=== PATIENT | male | born 1955 | race African-American/Black ===

== ENCOUNTER 2017-12-20 03:28 | Inpatient (IN) | payer OTHER ==
[2017-12-20] MEDS ORDERED: MORPHINE SULFATE 10 MG/ML INJ IV ONE (05:10)
[2017-12-20] MEDS ORDERED: ONDANSETRON HCL INJ/PF 4 MG/2 ML SDV IV ONE ×2 (05:10→08:02)
[2017-12-20] MEDS ORDERED: NORMAL SALINE 1000 ML 1,000 ML IV ONE (05:10)
--- NOTE | 2017-12-20 05:12 | ER Document Report ---
ED Medical Screen (RME) - General Chief Complaint: Abdominal Pain Stated Complaint: STOMACH PAIN Time Seen by Provider: 12/20/17 05:07 Notes: Patient is a 62-year-old male who comes emergency department with chief complaint of severe abdominal pain that started at 1030 tonight. Pain is in the mid upper abdomen. He states he vomited twice, nonbloody, he had a normal bowel movement earlier in the day. He denies chest pain, flank pain. He denies any abdominal surgeries. Only past medical history is hypertension and type 2 diabetes. TRAVEL OUTSIDE OF THE [place] IN LAST 30 DAYS: No Physical Exam - Vital signs Vitals: Temp Pulse Resp BP Pulse Ox 98.0 F 67 20 115/82 98 12/20/17 03:37 12/20/17 03:37 12/20/17 03:37 12/20/17 03:37 12/20/17 03:37 - General General appearance: Anxious In distress: Moderate - Abdominal Tenderness: Tender - Very tender in the mid to upper abdomen, no obvious hernias , remaining abdomen is benign Course - Vital Signs Vital signs: Temp Pulse Resp BP Pulse Ox 98.0 F 67 20 115/82 98 12/20/17 03:37 12/20/17 03:37 12/20/17 03:37 12/20/17 03:37 12/20/17 03:37 - Laboratory Result Diagrams: 12/20/17 04:58 12/20/17 04:58
[2017-12-20 05:17] LABS: ABSOLUTE BASOPHILS # (AUTO) 0.1 10^3/uL (0.0-0.2); ABSOLUTE LYMPHOCYTES (AUTO) 0.9 10^3/uL (0.5-4.7); ABSOLUTE MONOCYTES (AUTO) 0.6 10^3/uL (0.1-1.4); ABSOLUTE NEUT (AUTO) 10.5 10^3/uL (1.7-8.2); BASOPHILS % (AUTO) 0.5 % (0-2); HEMATOCRIT 44.6 % (37.9-51.0); HEMOGLOBIN 14.8 g/dL (13.5-17.0); LYMPHOCYTES % (AUTO) 7.3 % (13-45); MEAN CORPUSCULAR HEMOGLOBIN 29.1 pg (27.0-33.4); MEAN CORPUSCULAR HGB CONC 33.2 g/dL (32.0-36.0); MEAN CORPUSCULAR VOLUME 88 fl (80-97); MONOCYTES % (AUTO) 5.1 % (3-13); PLATELET COUNT 183 10^3/uL (150-450); RED BLOOD COUNT 5.09 10^6/uL (4.35-5.55); RED CELL DISTRIBUTION WIDTH 13.8 % (11.5-14.0); SEGMENTED NEUTROPHILS % (AUTO) 87.1 % (42-78); TOTAL CELLS COUNTED % (AUTO) 100 %; WHITE BLOOD COUNT 12.1 10^3/uL (4.0-10.5)
[2017-12-20 05:41] LABS: ALANINE AMINOTRANSFERASE 49 U/L (21-72); ALBUMIN 4.2 g/dL (3.5-5.0); ALKALINE PHOSPHATASE 79 U/L (38-126); ANION GAP 12 (5-19); ASPARTATE AMINO TRANSFERASE 48 U/L (17-59); BILIRUBIN,DIRECT 0.2 mg/dL (0.0-0.4); BILIRUBIN,TOTAL 0.9 mg/dL (0.2-1.3); BLOOD UREA NITROGEN 17 mg/dL (7-20); CALCIUM 9.6 mg/dL (8.4-10.2); CARBON DIOXIDE 28 mmol/L (22-30); CHLORIDE 101 mmol/L (98-107); GLUCOSE 193 mg/dL (75-110); POTASSIUM 3.9 mmol/L (3.6-5.0); SODIUM 141.1 mmol/L (137-145); TOTAL PROTEIN 7.3 g/dL (6.3-8.2)
[2017-12-20 06:03] LABS: LIPASE 3850.7 U/L (23-300)
--- NOTE | 2017-12-20 07:40 | RADIOLOGY REPORT (SQ) ---
EXAM DESCRIPTION: ACUTE ABDOMEN SERIES CLINICAL HISTORY: severe abdominal pain, vomiting COMPARISON: None. FINDINGS: Single view of the chest with 2 views of the abdomen. Cardiomegaly. Tortuosity of thoracic aorta. Low lung volumes. No consolidation, pneumothorax, pleural effusion. Degenerative change of the hips.. No dilated loops of large or small bowel. No free intraperitoneal air. Degenerative change of the spine. IMPRESSION: 1. No acute pulmonary process. 2. Nonobstructive bowel gas pattern.
[2017-12-20] MEDS ORDERED: HYDROMORPHONE HCL INJ/PF 2 MG/ML AMPULE IV ONE ×2 (07:57→10:16)
--- NOTE | 2017-12-20 08:05 | ER Document Report ---
ED General - General Chief Complaint: Abdominal Pain Stated Complaint: STOMACH PAIN Time Seen by Provider: 12/20/17 05:07 TRAVEL OUTSIDE OF THE [place] IN LAST 30 DAYS: No - HPI Notes: Patient is a 62-year-old male with a history of hypertension, type 2 diabetes, hypercholesterolemia who presents the ED complaining of epigastric pain 2 days. Patient states that the pain does not radiate. Patient is not sure if food makes the pain worse or better. Patient states that he was eating and drinking normally yesterday and having normal bowel movements. Patient states he still urinating. He has been taking his home medications as directed without any side effects no. Patient states that he did have 2 episodes of nonbloody vomiting yesterday. He denies any drug allergies. No other concerns or complaints at this time. Denies any headache, fever, head injury, neck pain , changes in vision/speech/mentation/hearing, URI, sore throat, chest pain, palpitations, syncope, cough, shortness of breath, wheeze, dyspnea, abdominal pain, nausea/vomiting/diarrhea, urinary retention, dysuria, hematuria, back pain , loss of control of bowel or bladder, numbness/tingling, or rash. - Related Data Allergies/Adverse Reactions: No Known Drug Allergies Allergy (Verified 12/20/17 06:54) Past Medical History - Social History Smoking Status: Never Smoker Chew tobacco use (# tins/day): No Frequency of alcohol use: None Drug Abuse: None Family History: Reviewed & Not Pertinent Patient has suicidal ideation: No Patient has homicidal ideation: No Renal/ Medical History: Denies: Hx Peritoneal Dialysis Review of Systems - Review of Systems Notes: REVIEW OF SYSTEMS: CONSTITUTIONAL : Denies fever, chills, or sweats. Denies recent illness. EENT: Denies eye, ear, throat, or mouth pain or symptoms. Denies nasal or sinus congestion or discharge. Denies throat, tongue, or mouth swelling or difficulty swallowing. CARDIOVASCULAR: Denies chest pain. Denies palpitations or racing or irregular heart beat. Denies ankle edema. RESPIRATORY: Denies cough, cold, or chest congestion. Denies shortness of breath, difficulty breathing, or wheezing. GASTROINTESTINAL: see hpi GENITOURINARY: Denies difficulty urinating, painful urination, burning, frequency, blood in urine, or discharge. MUSCULOSKELETAL: Denies back or neck pain or stiffness. Denies joint pain or swelling. SKIN: Denies rash, lesions or sores. NEUROLOGICAL: Denies confusion or altered mental status. Denies passing out or loss of consciousness. Denies dizziness or lightheadedness. Denies headache. Denies weakness or paralysis or loss of use of either side. Denies problems with gait or speech. Denies sensory loss, numbness, or tingling. Denies seizures. ALL OTHER SYSTEMS REVIEWED AND NEGATIVE. Dictation was performed using [employer] voice recognition software Physical Exam - Vital signs Vitals: Temp Pulse Resp BP Pulse Ox 98.0 F 67 20 115/82 98 12/20/17 03:37 12/20/17 03:37 12/20/17 03:37 12/20/17 03:37 12/20/17 03:37 - Notes Notes: PHYSICAL EXAMINATION: GENERAL: Well-appearing, well-nourished and in no acute distress. A&Ox4 HEAD: Atraumatic, normocephalic. EYES: Pupils equal round and reactive to light, extraocular movements intact, sclera anicteric, conjunctiva are normal. ENT: EAC clear b/l. TM's intact b/l without erythema, fluid, or perforation. Nares patent and without discharge. oropharynx clear without exudates. No tonsilar hypertrophy or erythema. Moist mucous membranes. NECK: Normal range of motion, supple without lymphadenopathy LUNGS: Breath sounds clear to auscultation bilaterally and equal. No wheezes rales or rhonchi. HEART: Regular rate and rhythm without murmurs, rubs, gallops. ABDOMEN: Soft, nondistended abdomen. No guarding, no rebound. No masses appreciated. Normal bowel sounds present. No CVA tenderness bilaterally. Obese. + tenderness to the epigastrum. No tenderness to McBurney point/Leung. Musculoskeletal: FROM to passive/active. Strength 5+/5. Extremities: No cyanosis, clubbing, or edema b/l. Peripheral pulses 2+. Capillary refill less than 3 seconds. NEUROLOGICAL: Normal speech, normal gait. Normal sensory, motor exams PSYCH: Normal mood, normal affect. SKIN: Warm, Dry, normal turgor, no rashes or lesions noted. Course - Re-evaluation Re-evalutation: 12/20/17 08:05 Mildly elevated WBC with elevated Lipase. CMP/CBC otherwise unremarkable. KUB unremarkable. Ordered CT scan to further evaluate. Dilaudid/zofran/NPO/fluids. 12/20/17 09:10 Patient is an afebrile, well-hydrated, 62-year-old male who presents the ED with acute pancreatitis confirmed with CT. vitals are currently stable. We will contact the hospitalist for admission. 12/20/17 09:15 Dr. Dior accepted patient for admission. Pt/family in agreement. - Vital Signs Vital signs: Temp Pulse Resp BP Pulse Ox 98.0 F 67 20 115/82 98 12/20/17 03:37 12/20/17 03:37 12/20/17 03:37 12/20/17 03:37 12/20/17 03:37 - Laboratory Result Diagrams: 12/20/17 04:58 12/20/17 04:58 Laboratory results interpreted by me: 12/20/17 12/20/17 04:58 04:58 WBC 12.1 H Seg Neutrophils % 87.1 H Lymphocytes % 7.3 L Absolute Neutrophils 10.5 H Glucose 193 H Lipase 3850.7 H Discharge - Discharge Clinical Impression: Pancreatitis Qualifiers: Chronicity: acute Pancreatitis type: unspecified pancreatitis type Acute pancreatitis complication: no infection or necrosis Qualified Code(s): K85.90 - Acute pancreatitis without necrosis or infection, unspecified Condition: Stable Disposition: ADMITTED INPATIENT Admitting Provider: Hospitalist - Dr. Dior Unit Admitted: Medical Floor
--- NOTE | 2017-12-20 08:48 | RADIOLOGY REPORT (SQ) ---
EXAM DESCRIPTION: CT ABD/PELVIS WITH IV ONLY COMPLETED DATE/TIME: 12/20/2017 8:34 am REASON FOR STUDY: epigastric pain, elevated lipase COMPARISON: None. TECHNIQUE: CT scan of the abdomen and pelvis performed using helical scanning technique with dynamic intravenous contrast injection. No oral contrast. Images reviewed with lung, soft tissue, and bone windows. Reconstructed coronal and sagittal MPR images reviewed. Delayed images for evaluation of the urinary system also acquired. All images stored on PACS. All CT scanners at this facility use dose modulation, iterative reconstruction, and/or weight based d osing when appropriate to reduce radiation dose to as low as reasonably achievable (ALARA). [facility]: Dose Right [facility]: CareDose [facility]: Dose Right [facility]: Teradose 4D [facility]: [employer] CONTRAST TYPE AND DOSE: contrast/concentration: Isovue 370.00 mg/ml; Total Contrast Delivered: 100.0 ml; Total Saline Delivered: 70.0 ml RENAL FUNCTION: BUN 17 creatinine 0.99. RADIATION DOSE: CT Rad equipment meets quality standard of care and radiation dose reduction techniq ues were employed. CTDIvol: 21.0 - 21.1 mGy. DLP: 2332 mGy-cm.. LIMITATIONS: None. FINDINGS: LOWER CHEST: No significant findings. No nodules or infiltrates. LIVER: Normal size. No masses. No dilated ducts. SPLEEN: Normal size. No focal lesions. PANCREAS: No masses. No significant calcifications. General diffuse edematous appearance of the panc reas with fluid in the peripancreatic tissues. . Pancreatic duct not dilated. GALLBLADDER: No identified stones by CT criteria. No inflammatory changes to suggest cholecystitis. ADRENAL GLANDS: No significant masses or asymmetry. RIGHT KIDNEY AND URETER: No solid masses. No significant calcifications. No hydronephrosis or hyd roureter. LEFT KIDNEY AND URETER: Cortical cysts. No solid masses. No significant calcifications. No hydro nephrosis or hydroureter. AORTA AND VESSELS: No aneurysm. No dissection. Renal arteries, SMA, celiac without stenosis. RETROPERITONEUM: No retroperitoneal adenopathy, hemorrhage or masses. BOWEL AND PERITONEAL CAVITY: Colonic diverticulosis. No masses or inflammatory changes. Small amoun t of free fluid in the pericolic gutters extending from the peripancreatic fluid. No peritoneal mass es. APPENDIX: Normal. PELVIS: No mass. No free fluid. Normal bladder. ABDOMINAL WALL: No masses. No hernias. BONES: No significant or acute findings. 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 OTHER: No other significant finding. IMPRESSION: 1. EDEMATOUS APPEARANCE OF THE PANCREAS WITH INFLAMMATORY CHANGES AND FLUID IN THE PERIPANCREATIC TIS SUES, CONSISTENT WITH ACUTE PANCREATITIS. 2. COLONIC DIVERTICULOSIS. NO CT FINDINGS OF ACUTE DIVERTICULITIS. 3. CORTICAL CYSTS IN THE LEFT KIDNEY. 4. NO OTHER SIGNIFICANT FINDINGS. TECHNICAL DOCUMENTATION: JOB ID: [id number] Quality ID # [id number]: Final reports with documentation of one or more dose reduction techniques (e.g., Au tomated exposure control, adjustment of the mA and/or kV according to patient size, use of iterative reconstruction technique) 2010 [employer]- All Rights Reserved
[2017-12-20 10:13] LABS: APPEARANCE,URINE CLEAR; BILIRUBIN,URINE NEGATIVE (NEGATIVE); COLOR,URINE YELLOW; GLUCOSE, URINE 50 mg/dL (NEGATIVE); KETONES,URINE NEGATIVE (NEGATIVE); LEUKOCYTE ESTERASE,URINE NEGATIVE (NEGATIVE); NITRITE,URINE NEGATIVE (NEGATIVE); PROTEIN,URINE NEGATIVE (NEGATIVE); URINE SPECIFIC GRAVITY 1.044
[2017-12-20] MEDS ORDERED: DEXTROSE 50%-WATER 25 GM/50 ML DISP.SYRIN IV PRN ×6 (11:11→11:23)
[2017-12-20] MEDS ORDERED: GLUCAGON,HUMAN RECOMB 1 MG INJ SUBCUT PRN ×2 (11:11→11:20)
[2017-12-20] MEDS ORDERED: DEXTROSE 40% GEL 15 GM TUBE PO PRN ×6 (11:11→11:23)
[2017-12-20] MEDS ORDERED: ONDANSETRON HCL INJ/PF 4 MG/2 ML SDV IV PRN (11:11)
[2017-12-20] MEDS ORDERED: GLUCAGON,HUMAN RECOMB 1 MG INJ IM PRN (11:23)
--- NOTE | 2017-12-20 11:32 | PDOC H&P ---
History of Present Illness Admission Date/PCP: 12/20/17 09:18 Patient complains of: Add pain History of Present Illness: TRICIA WESLEY is a 62 year old male since with complaint of abdominal pain. Patient states that last night around 10:00 he developed severe abdominal pain. Patient states that prior to that he had been eating [place] food. Patient states that he has not had chills fever during this episode. Patient denies chest pain or shortness of breath. Patient does admit to nausea and vomiting. Patient reports that he is vomited approximately 6 times. Past Medical History Cardiac Medical History: Reports: Hyperlipidema, Hypertension Pulmonary Medical History: Reports: None EENT Medical History: Reports: None Neurological Medical History: Reports: None Endocrine Medical History: Reports: Diabetes Mellitus Type 2 Malignancy Medical History: Reports: None GI Medical History: Reports: None Musculoskeltal Medical History: Reports: None Skin Medical History: Reports: None Psychiatric Medical History: Reports: None Traumatic Medical History: Reports: None Hematology: Reports: None Infectious Medical History: Reports: None Past Surgical History Past Surgical History: Reports: None Social History Information Source: Patient Lives with: Alone Smoking Status: Never Smoker Frequency of Alcohol Use: None Hx Recreational Drug Use: No Hx Prescription Drug Abuse: No - Advance Directive Resuscitation Status: Full Code Family History Family History: DM, Hyperlipidemia, Hypertension Parental Family History Reviewed: No Children Family History Reviewed: No Sibling(s) Family History Reviewed.: No Medication/Allergy Home Medications: Benazepril HCl [Lotensin 20 mg Tablet] 20 mg PO DAILY 12/20/17 Liraglutide [Victoza 2-Srinivas] 1.8 mg SUBCUT DAILY 12/20/17 Metformin HCl [Metformin HCl ER] 1,500 mg PO DAILY 12/20/17 Simvastatin [Zocor 40 mg Tablet] 40 mg PO DAILY 12/20/17 Testosterone Cypionate [Depo-Testosterone] 1.5 ml IM [id number] 12/20/17 Allergies/Adverse Reactions: No Known Drug Allergies Allergy (Verified 12/20/17 06:54) Review of Systems Constitutional: ABSENT: chills, fever(s), headache(s), weight gain, weight loss Eyes: ABSENT: visual disturbances Ears: ABSENT: hearing changes Cardiovascular: ABSENT: chest pain, dyspnea on exertion, edema, orthropnea, palpitations Respiratory: ABSENT: cough, hemoptysis Gastrointestinal: PRESENT: abdominal pain, nausea, vomiting Genitourinary: ABSENT: dysuria, hematuria Musculoskeletal: ABSENT: joint swelling Integumentary: ABSENT: rash, wounds Neurological: ABSENT: abnormal gait, abnormal speech, confusion, dizziness, focal weakness, syncope Psychiatric: ABSENT: anxiety, depression, homidical ideation, suicidal ideation Endocrine: ABSENT: cold intolerance, heat intolerance, polydipsia, polyuria Hematologic/Lymphatic: ABSENT: easy bleeding, easy bruising Physical Exam Vital Signs: Temp Pulse Resp BP Pulse Ox 98.5 F 66 16 129/51 H 94 12/20/17 09:29 12/20/17 09:29 12/20/17 09:29 12/20/17 09:29 12/20/17 09:29 General appearance: PRESENT: mild distress, morbidly obese, well-developed, well -nourished Head exam: PRESENT: atraumatic, normocephalic Eye exam: PRESENT: conjunctiva pink, EOMI. ABSENT: scleral icterus Ear exam: PRESENT: normal external ear exam Mouth exam: PRESENT: moist, tongue midline Neck exam: ABSENT: carotid bruit, JVD, lymphadenopathy, thyromegaly Respiratory exam: PRESENT: clear to auscultation joey. ABSENT: rales, rhonchi, wheezes Cardiovascular exam: PRESENT: RRR. ABSENT: diastolic murmur, rubs, systolic murmur Pulses: PRESENT: normal dorsalis pedis pul Vascular exam: PRESENT: normal capillary refill GI/Abdominal exam: PRESENT: normal bowel sounds, soft. ABSENT: distended, guarding, mass, organolmegaly, rebound, tenderness Rectal exam: PRESENT: deferred Extremities exam: PRESENT: full ROM. ABSENT: calf tenderness, clubbing, pedal edema Neurological exam: PRESENT: alert, awake, oriented to person, oriented to place , oriented to time, oriented to situation, CN II-XII grossly intact. ABSENT: motor sensory deficit Psychiatric exam: PRESENT: appropriate affect, normal mood. ABSENT: homicidal ideation, suicidal ideation Skin exam: PRESENT: dry, intact, warm. ABSENT: cyanosis, rash Results Laboratory Results: 12/20/17 10:05 Urine Color YELLOW Urine Appearance CLEAR Urine pH 5.0 Ur Specific [place] 1.044 Urine Protein NEGATIVE Urine Glucose (UA) 50 H Urine Ketones NEGATIVE Urine Blood NEGATIVE Urine Nitrite NEGATIVE Ur Leukocyte Esterase NEGATIVE Urine WBC (Auto) 1 Urine RBC (Auto) 1 Impressions: Acute Abdomen Series 12/20/17 05:10 IMPRESSION: 1. No acute pulmonary process. 2. Nonobstructive bowel gas pattern. Abdomen/Pelvis CT 12/20/17 07:57 IMPRESSION: 1. EDEMATOUS APPEARANCE OF THE PANCREAS WITH INFLAMMATORY CHANGES AND FLUID IN THE PERIPANCREATIC TISSUES, CONSISTENT WITH ACUTE PANCREATITIS. 2. COLONIC DIVERTICULOSIS. NO CT FINDINGS OF ACUTE DIVERTICULITIS. 3. CORTICAL CYSTS IN THE LEFT KIDNEY. 4. NO OTHER SIGNIFICANT FINDINGS. Assessment & Plan - Diagnosis (1) Acute pancreatitis Is this a current diagnosis for this admission?: Yes Plan: Will make pt NPO. Will place on IVFs. Will write for pain medication. Will check Lipid profile. (2) Hypertension Is this a current diagnosis for this admission?: Yes Plan: Will continue to monitor. (3) DM type 2 (diabetes mellitus, type 2) Is this a current diagnosis for this admission?: Yes Plan: Will place on SSI. Will check Hemoglobin A1C. (4) Hyperlipidemia Is this a current diagnosis for this admission?: Yes Plan: Will check Lipid Profile. (5) Dehydration Is this a current diagnosis for this admission?: Yes Plan: Will place pt on IVFs. Will check labs in am. (6) DVT prophylaxis Is this a current diagnosis for this admission?: Yes Plan: SCDs - Time Time Spent: 30 to 50 Minutes
[2017-12-20] MEDS: MORPHINE SULFATE 10 MG/ML INJ IV PRN ×3 (11:44→20:42)
[2017-12-20] MEDS: DEXTROSE 5%-NORMAL SALINE 1,000 ML IV PRN (11:44)
[2017-12-20] MEDS: INSULIN LISPRO 100 UNIT/ML 3 ML VIAL SUBCUT PRN (16:31)
[2017-12-21] MEDS: INSULIN LISPRO 100 UNIT/ML 3 ML VIAL SUBCUT PRN (00:29)
[2017-12-21] MEDS: PANTOPRAZOLE SODIUM 40 MG VIAL IV SCH ×3 (01:35→22:08)
[2017-12-21] MEDS: MORPHINE SULFATE 10 MG/ML INJ IV PRN ×5 (01:36→20:10)
[2017-12-21] MEDS: DEXTROSE 5%-NORMAL SALINE 1,000 ML IV PRN (05:46)
[2017-12-21 07:14] LABS: HEMATOCRIT 42.3 % (37.9-51.0); MEAN CORPUSCULAR HEMOGLOBIN 28.9 pg (27.0-33.4); MEAN CORPUSCULAR HGB CONC 33.1 g/dL (32.0-36.0); MEAN CORPUSCULAR VOLUME 87 fl (80-97); PLATELET COUNT 152 10^3/uL (150-450); RED BLOOD COUNT 4.84 10^6/uL (4.35-5.55); RED CELL DISTRIBUTION WIDTH 14.1 % (11.5-14.0); WHITE BLOOD COUNT 14.2 10^3/uL (4.0-10.5)
[2017-12-21 07:27] LABS: ALANINE AMINOTRANSFERASE 40 U/L (21-72); ALBUMIN 3.4 g/dL (3.5-5.0); ALKALINE PHOSPHATASE 60 U/L (38-126); ANION GAP 6 (5-19); ASPARTATE AMINO TRANSFERASE 41 U/L (17-59); BILIRUBIN,DIRECT 0.2 mg/dL (0.0-0.4); BILIRUBIN,TOTAL 1.1 mg/dL (0.2-1.3); BLOOD UREA NITROGEN 14 mg/dL (7-20); CALCIUM 8.5 mg/dL (8.4-10.2); CARBON DIOXIDE 30 mmol/L (22-30); CHLORIDE 106 mmol/L (98-107); CHOLESTEROL 116.02 mg/dL (0-200); GLUCOSE 194 mg/dL (75-110); POTASSIUM 3.8 mmol/L (3.6-5.0); SODIUM 142.1 mmol/L (137-145); TOTAL PROTEIN 6.4 g/dL (6.3-8.2); TRIGLYCERIDES 39 mg/dL (<150)
[2017-12-21 07:38] LABS: DIRECT LDL 60 mg/dL (<100)
[2017-12-21 07:43] LABS: FREE T4 (FREE THYROXINE) 0.96 ng/dL (0.78-2.19)
[2017-12-21 07:57] LABS: THYROID STIMULATING HORMONE 0.34 uIU/mL (0.47-4.68)
[2017-12-21 08:13] LABS: ABSOLUTE LYMPHOCYTES# (MANUAL) 0.6 10^3/uL (0.5-4.7); ABSOLUTE MONOCYTES # (MANUAL) 0.6 10^3/uL (0.1-1.4); ABSOLUTE NEUTROPHILS# (MANUAL) 13.1 10^3/uL (1.7-8.2); BAND NEUTROPHILS % (MANUAL) 3 % (3-5); BASOPHILS % (MANUAL) 0 % (0-2); EOSINOPHILS % (MANUAL) 0 % (0-6); HYPOCHROMASIA SLIGHT; LYMPHOCYTES % (MANUAL) 4 % (13-45); MONOCYTES % (MANUAL) 4 % (3-13); PLATELET COMMENT ADEQUATE; POLYCHROMASIA SLIGHT; ROULEAUX SLIGHT; SEGMENTED NEUTROPHILS % (MAN) 89 % (42-78); TOTAL CELLS COUNTED 100
--- NOTE | 2017-12-21 13:45 | PDOC PROGRESS REPORT ---
Subjective Progress Note for:: 12/21/17 Subjective:: Pt states that his pain is currently a 4. Nursing states the patient is requesting pain medicine about every 4 hours. Patient's is at bedside concerned about patient complaining of pain stated that she feels like his pain medicine needs to be increased. Patient on entering the room was sitting quietly. Reason For Visit: ACUTE PANCREATITIS Physical Exam Vital Signs: Temp Pulse Resp BP Pulse Ox 99.9 F 88 22 H 136/73 H 96 12/21/17 11:47 12/21/17 11:47 12/21/17 11:47 12/21/17 11:47 12/21/17 11:47 Intake & Output 12/20/17 12/21/17 12/22/17 06:59 06:59 06:59 Intake Total 1000 Output Total 350 Balance 650 Weight 124.4 kg General appearance: PRESENT: well-developed, well-nourished, other - After waking patient in talking to him then he started grimacing as though he was experiencing pain. Head exam: PRESENT: atraumatic, normocephalic Eye exam: PRESENT: conjunctiva pink, EOMI. ABSENT: scleral icterus Ear exam: PRESENT: normal external ear exam Mouth exam: PRESENT: moist, tongue midline Neck exam: ABSENT: carotid bruit, JVD, lymphadenopathy, thyromegaly Respiratory exam: PRESENT: clear to auscultation joey. ABSENT: rales, rhonchi, wheezes Cardiovascular exam: PRESENT: RRR. ABSENT: diastolic murmur, rubs, systolic murmur Pulses: PRESENT: normal dorsalis pedis pul Vascular exam: PRESENT: normal capillary refill GI/Abdominal exam: PRESENT: tenderness - Epigastric positive for bowel sounds Rectal exam: PRESENT: deferred Extremities exam: PRESENT: full ROM. ABSENT: calf tenderness, clubbing, pedal edema Neurological exam: PRESENT: alert, awake, oriented to person, oriented to place , oriented to time, oriented to situation, CN II-XII grossly intact. ABSENT: motor sensory deficit Psychiatric exam: PRESENT: appropriate affect, normal mood. ABSENT: homicidal ideation, suicidal ideation Skin exam: PRESENT: dry, intact, warm. ABSENT: cyanosis, rash Results Laboratory Results: 12/21/17 06:47 12/21/17 06:47 12/21/17 12/21/17 12/21/17 06:47 06:47 06:47 WBC 14.2 H RBC 4.84 Hgb 14.0 Hct 42.3 MCV 87 MCH 28.9 MCHC 33.1 RDW 14.1 H Plt Count 152 Seg Neutrophils % Not Reportable Lymphocytes % Not Reportable Monocytes % Not Reportable Eosinophils % Not Reportable Basophils % Not Reportable Absolute Neutrophils Not Reportable Absolute Lymphocytes Not Reportable Absolute Monocytes Not Reportable Absolute Eosinophils Not Reportable Absolute Basophils Not Reportable Sodium 142.1 Potassium 3.8 Chloride 106 Carbon Dioxide 30 Anion Gap 6 BUN 14 Creatinine 0.96 Est GFR ( Amer) > 60 Est GFR (Non-Af Amer) > 60 Glucose 194 H Calcium 8.5 Total Bilirubin 1.1 AST 41 ALT 40 Alkaline Phosphatase 60 Total Protein 6.4 Albumin 3.4 L Triglycerides 39 Cholesterol 116.02 LDL Cholesterol Direct 60 VLDL Cholesterol 8.0 L HDL Cholesterol 48 TSH 0.34 L Free T4 0.96 Impressions: Acute Abdomen Series 12/20/17 05:10 IMPRESSION: 1. No acute pulmonary process. 2. Nonobstructive bowel gas pattern. Abdomen/Pelvis CT 12/20/17 07:57 IMPRESSION: 1. EDEMATOUS APPEARANCE OF THE PANCREAS WITH INFLAMMATORY CHANGES AND FLUID IN THE PERIPANCREATIC TISSUES, CONSISTENT WITH ACUTE PANCREATITIS. 2. COLONIC DIVERTICULOSIS. NO CT FINDINGS OF ACUTE DIVERTICULITIS. 3. CORTICAL CYSTS IN THE LEFT KIDNEY. 4. NO OTHER SIGNIFICANT FINDINGS. Assessment & Plan - Diagnosis (1) Acute pancreatitis Is this a current diagnosis for this admission?: Yes Plan: We will continue n.p.o. We will continue IV fluids. Will continue pain medicine as scheduled. Patient reported that his pain level currently as a 4. Nurse reported that it is time for patient to be due to receive morphine again. So therefore it appears that every 4 hours on the morphine is appropriate. His triglycerides are within normal limits. (2) Hypertension Is this a current diagnosis for this admission?: Yes Plan: Continue current treatment. (3) DM type 2 (diabetes mellitus, type 2) Is this a current diagnosis for this admission?: Yes Plan: Hemoglobin A1c of 6.3. Will continue SSI (4) Hyperlipidemia Is this a current diagnosis for this admission?: Yes Plan: Within normal limits. (5) Dehydration Is this a current diagnosis for this admission?: Yes Plan: Resolved. (6) DVT prophylaxis Is this a current diagnosis for this admission?: Yes Plan: SCDs - Time Time Spent with patient: 15-24 minutes
[2017-12-21] MEDS ORDERED: ACETAMINOPHEN 650 MG SUPP.RECT PR PRN (20:15)
[2017-12-22] MEDS: MORPHINE SULFATE 10 MG/ML INJ IV PRN ×3 (04:23→12:45)
[2017-12-22] MEDS: DEXTROSE 5%-NORMAL SALINE 1,000 ML IV PRN (04:23)
[2017-12-22 07:14] LABS: ALANINE AMINOTRANSFERASE 33 U/L (21-72); ALBUMIN 2.9 g/dL (3.5-5.0); ALKALINE PHOSPHATASE 58 U/L (38-126); ANION GAP 7 (5-19); ASPARTATE AMINO TRANSFERASE 38 U/L (17-59); BILIRUBIN,TOTAL 1.3 mg/dL (0.2-1.3); BLOOD UREA NITROGEN 16 mg/dL (7-20); CALCIUM 8.5 mg/dL (8.4-10.2); CARBON DIOXIDE 29 mmol/L (22-30); CHLORIDE 107 mmol/L (98-107); GLUCOSE 175 mg/dL (75-110); LIPASE 694.5 U/L (23-300); POTASSIUM 3.8 mmol/L (3.6-5.0); TOTAL PROTEIN 5.8 g/dL (6.3-8.2)
[2017-12-22] MEDS: PANTOPRAZOLE SODIUM 40 MG VIAL IV SCH ×2 (11:02→22:21)
--- NOTE | 2017-12-22 17:55 | PDOC PROGRESS REPORT ---
Subjective Progress Note for:: 12/22/17 Subjective:: Pt states that his pain is improving. Pt states that he would like to have ICE chips. Reason For Visit: ACUTE PANCREATITIS Physical Exam Vital Signs: Temp Pulse Resp BP Pulse Ox 100.1 F 99 18 127/79 H 91 L 12/22/17 16:15 12/22/17 16:15 12/22/17 16:15 12/22/17 16:15 12/22/17 16:15 Intake & Output 12/21/17 12/22/17 12/23/17 06:59 06:59 06:59 Intake Total 1000 2321 398 Output Total 350 1650 700 Balance 650 671 -302 Weight 124.4 kg 127.2 kg General appearance: PRESENT: mild distress, well-developed, well-nourished Head exam: PRESENT: atraumatic, normocephalic Eye exam: PRESENT: conjunctiva pink, EOMI. ABSENT: scleral icterus Ear exam: PRESENT: normal external ear exam Mouth exam: PRESENT: moist, tongue midline Neck exam: ABSENT: carotid bruit, JVD, lymphadenopathy, thyromegaly Respiratory exam: PRESENT: clear to auscultation joey. ABSENT: rales, rhonchi, wheezes Cardiovascular exam: PRESENT: RRR. ABSENT: diastolic murmur, rubs, systolic murmur Pulses: PRESENT: normal dorsalis pedis pul Vascular exam: PRESENT: normal capillary refill GI/Abdominal exam: PRESENT: normal bowel sounds, tenderness - Diffuse tenderness greater at midepigastric region. ABSENT: distended, guarding, mass, organolmegaly, rebound Rectal exam: PRESENT: deferred Extremities exam: PRESENT: full ROM. ABSENT: calf tenderness, clubbing, pedal edema Neurological exam: PRESENT: alert, awake, oriented to person, oriented to place , oriented to time, oriented to situation, CN II-XII grossly intact. ABSENT: motor sensory deficit Psychiatric exam: PRESENT: appropriate affect, normal mood. ABSENT: homicidal ideation, suicidal ideation Skin exam: PRESENT: dry, intact, warm. ABSENT: cyanosis, rash Results Laboratory Results: 12/21/17 06:47 12/22/17 06:15 12/22/17 06:15 Sodium 143.0 Potassium 3.8 Chloride 107 Carbon Dioxide 29 Anion Gap 7 BUN 16 Creatinine 0.96 Est GFR ( Amer) > 60 Est GFR (Non-Af Amer) > 60 Glucose 175 H Calcium 8.5 Total Bilirubin 1.3 AST 38 ALT 33 Alkaline Phosphatase 58 Total Protein 5.8 L Albumin 2.9 L Lipase 694.5 H Impressions: Acute Abdomen Series 12/20/17 05:10 IMPRESSION: 1. No acute pulmonary process. 2. Nonobstructive bowel gas pattern. Abdomen/Pelvis CT 12/20/17 07:57 IMPRESSION: 1. EDEMATOUS APPEARANCE OF THE PANCREAS WITH INFLAMMATORY CHANGES AND FLUID IN THE PERIPANCREATIC TISSUES, CONSISTENT WITH ACUTE PANCREATITIS. 2. COLONIC DIVERTICULOSIS. NO CT FINDINGS OF ACUTE DIVERTICULITIS. 3. CORTICAL CYSTS IN THE LEFT KIDNEY. 4. NO OTHER SIGNIFICANT FINDINGS. Assessment & Plan - Diagnosis (1) Acute pancreatitis Is this a current diagnosis for this admission?: Yes Plan: We will continue IV fluids, pain medication, and allow patient to have ice chips. (2) Hypertension Is this a current diagnosis for this admission?: Yes Plan: Continue current treatment. (3) DM type 2 (diabetes mellitus, type 2) Is this a current diagnosis for this admission?: Yes Plan: Hemoglobin A1c of 6.3. Will continue SSI (4) Hyperlipidemia Is this a current diagnosis for this admission?: Yes Plan: Within normal limits. (5) Dehydration Is this a current diagnosis for this admission?: Yes Plan: Resolved. (6) DVT prophylaxis Is this a current diagnosis for this admission?: Yes Plan: SCDs - Time Time Spent with patient: 15-24 minutes
[2017-12-23] MEDS: MORPHINE SULFATE 10 MG/ML INJ IV PRN ×2 (00:33→10:55)
[2017-12-23] MEDS: DEXTROSE 5%-NORMAL SALINE 1,000 ML IV PRN ×2 (00:36→10:55)
[2017-12-23 05:39] LABS: ABSOLUTE EOSINOPHILS # (AUTO) 0.1 10^3/uL (0.0-0.6); ABSOLUTE LYMPHOCYTES (AUTO) 0.8 10^3/uL (0.5-4.7); BASOPHILS % (AUTO) 0.2 % (0-2); HEMATOCRIT 35.5 % (37.9-51.0); LYMPHOCYTES % (AUTO) 6.4 % (13-45); MEAN CORPUSCULAR HEMOGLOBIN 28.7 pg (27.0-33.4); MEAN CORPUSCULAR HGB CONC 32.7 g/dL (32.0-36.0); MEAN CORPUSCULAR VOLUME 88 fl (80-97); MONOCYTES % (AUTO) 8.2 % (3-13); PLATELET COUNT 129 10^3/uL (150-450); RED BLOOD COUNT 4.05 10^6/uL (4.35-5.55); RED CELL DISTRIBUTION WIDTH 13.7 % (11.5-14.0); SEGMENTED NEUTROPHILS % (AUTO) 84.2 % (42-78); TOTAL CELLS COUNTED % (AUTO) 100 %; WHITE BLOOD COUNT 11.9 10^3/uL (4.0-10.5)
[2017-12-23 05:44] LABS: HEMOGLOBIN 11.6 g/dL (13.5-17.0)
[2017-12-23 05:51] LABS: ALANINE AMINOTRANSFERASE 30 U/L (21-72); ALBUMIN 2.9 g/dL (3.5-5.0); ALKALINE PHOSPHATASE 55 U/L (38-126); ANION GAP 6 (5-19); ASPARTATE AMINO TRANSFERASE 30 U/L (17-59); BILIRUBIN,DIRECT 0.2 mg/dL (0.0-0.4); BILIRUBIN,TOTAL 1.4 mg/dL (0.2-1.3); BLOOD UREA NITROGEN 16 mg/dL (7-20); CALCIUM 8.1 mg/dL (8.4-10.2); CARBON DIOXIDE 30 mmol/L (22-30); CHLORIDE 107 mmol/L (98-107); GLUCOSE 189 mg/dL (75-110); POTASSIUM 3.6 mmol/L (3.6-5.0); SODIUM 142.5 mmol/L (137-145); TOTAL PROTEIN 5.7 g/dL (6.3-8.2)
[2017-12-23] MEDS: PANTOPRAZOLE SODIUM 40 MG VIAL IV SCH (10:55)
[2017-12-23] MEDS ORDERED: FUROSEMIDE INJ/PF 40 MG/4 ML SDV IV ONE (11:30)
[2017-12-23] MEDS ORDERED: ACETAMINOPHEN 325 MG TABLET PO PRN (16:30)
--- NOTE | 2017-12-23 16:42 | PDOC PROGRESS REPORT ---
Subjective Progress Note for:: 12/23/17 Subjective:: Patient was seen earlier this morning complaining of mild pain. Patient also mentioned that he was short of breath as well. Patient states the pain has improved. Nursing does called to report that patient was noted to be febrile. Nurse was told to give patient Tylenol and to check patient for flu. In addition patient has had multiple visitors to room and his daughter is sick. Reason For Visit: ACUTE PANCREATITIS Physical Exam Vital Signs: Temp Pulse Resp BP Pulse Ox 98.6 F 79 21 H 137/68 H 95 12/23/17 04:00 12/23/17 07:00 12/23/17 04:00 12/23/17 04:00 12/23/17 04:00 Intake & Output 12/22/17 12/23/17 12/24/17 06:59 06:59 06:59 Intake Total 2321 2258 Output Total 1650 1150 Balance 671 1108 Weight 127.2 kg 128.4 kg General appearance: PRESENT: no acute distress, well-developed, well-nourished Head exam: PRESENT: atraumatic, normocephalic Eye exam: PRESENT: conjunctiva pink, EOMI. ABSENT: scleral icterus Ear exam: PRESENT: normal external ear exam Mouth exam: PRESENT: moist, tongue midline Neck exam: ABSENT: carotid bruit, JVD, lymphadenopathy, thyromegaly Respiratory exam: PRESENT: clear to auscultation joey. ABSENT: rales, rhonchi, wheezes Cardiovascular exam: PRESENT: RRR. ABSENT: diastolic murmur, rubs, systolic murmur Pulses: PRESENT: normal dorsalis pedis pul Vascular exam: PRESENT: normal capillary refill GI/Abdominal exam: PRESENT: tenderness Rectal exam: PRESENT: deferred Extremities exam: PRESENT: full ROM. ABSENT: calf tenderness, clubbing, pedal edema Neurological exam: PRESENT: alert, awake, oriented to person, oriented to place , oriented to time, oriented to situation, CN II-XII grossly intact. ABSENT: motor sensory deficit Psychiatric exam: PRESENT: appropriate affect, normal mood. ABSENT: homicidal ideation, suicidal ideation Skin exam: PRESENT: dry, intact, warm. ABSENT: cyanosis, rash Results Laboratory Results: 12/23/17 05:06 12/23/17 05:06 01/29/18 01/29/18 05:06 05:06 WBC 11.9 H RBC 4.05 L Hgb 11.6 L D Hct 35.5 L MCV 88 MCH 28.7 MCHC 32.7 RDW 13.7 Plt Count 129 L Seg Neutrophils % 84.2 H Lymphocytes % 6.4 L Monocytes % 8.2 Eosinophils % 1.0 Basophils % 0.2 Absolute Neutrophils 10.0 H Absolute Lymphocytes 0.8 Absolute Monocytes 1.0 Absolute Eosinophils 0.1 Absolute Basophils 0.0 Sodium 142.5 Potassium 3.6 Chloride 107 Carbon Dioxide 30 Anion Gap 6 BUN 16 Creatinine 0.93 Est GFR ( Amer) > 60 Est GFR (Non-Af Amer) > 60 Glucose 189 H Calcium 8.1 L Magnesium 2.0 Total Bilirubin 1.4 H AST 30 ALT 30 Alkaline Phosphatase 55 Total Protein 5.7 L Albumin 2.9 L Impressions: Acute Abdomen Series 12/20/17 05:10 IMPRESSION: 1. No acute pulmonary process. 2. Nonobstructive bowel gas pattern. Abdomen/Pelvis CT 12/20/17 07:57 IMPRESSION: 1. EDEMATOUS APPEARANCE OF THE PANCREAS WITH INFLAMMATORY CHANGES AND FLUID IN THE PERIPANCREATIC TISSUES, CONSISTENT WITH ACUTE PANCREATITIS. 2. COLONIC DIVERTICULOSIS. NO CT FINDINGS OF ACUTE DIVERTICULITIS. 3. CORTICAL CYSTS IN THE LEFT KIDNEY. 4. NO OTHER SIGNIFICANT FINDINGS. Assessment & Plan - Diagnosis (1) Acute pancreatitis Is this a current diagnosis for this admission?: Yes Plan: We will continue IV fluids, pain medication, and allow patient to have ice chips. Pt may be able to be advanced to Clear Liquids tomorrow (2) Fever Is this a current diagnosis for this admission?: Yes Plan: Will screen pt for Flu. Will repeat CT of abd. Pt can have fever with Pancreatitis be will check CT to make sure pt does not have areas of necrosis. (3) Hypertension Is this a current diagnosis for this admission?: Yes Plan: Continue current treatment. (4) DM type 2 (diabetes mellitus, type 2) Is this a current diagnosis for this admission?: Yes Plan: Hemoglobin A1c of 6.3. Will continue SSI (5) Hyperlipidemia Is this a current diagnosis for this admission?: Yes Plan: Within normal limits. (6) Dehydration Is this a current diagnosis for this admission?: Yes Plan: Resolved. (7) DVT prophylaxis Is this a current diagnosis for this admission?: Yes Plan: SCDs
[2017-12-23] MEDS ORDERED: ACETAMINOPHEN 325 MG TABLET ONE (16:59)
[2017-12-23 18:27] LABS: A TYPE INFLUENZA AG NEGATIVE (NEGATIVE); B INFLUENZA AG NEGATIVE (NEGATIVE)
--- NOTE | 2017-12-23 18:45 | RADIOLOGY REPORT (SQ) ---
EXAM DESCRIPTION: CT ABD/PELVIS WITH IV ONLY COMPLETED DATE/TIME: 12/23/2017 6:27 pm REASON FOR STUDY: Pancreatitis with Fever. Concern for Necrosis COMPARISON: 12/20/2017. TECHNIQUE: CT scan of the abdomen and pelvis performed using helical scanning technique with dynamic intravenous contrast injection. No oral contrast. Images reviewed with lung, soft tissue, and bone windows. Reconstructed coronal and sagittal MPR images reviewed. Delayed images for evaluation of the urinary system also acquired. All images stored on PACS. All CT scanners at this facility use dose modulation, iterative reconstruction, and/or weight based d osing when appropriate to reduce radiation dose to as low as reasonably achievable (ALARA). [facility]: Dose Right [facility]: CareDose [facility]: Dose Right [facility]: Teradose 4D [facility]: Factyle CONTRAST TYPE AND DOSE: contrast/concentration: Isovue 370.00 mg/ml; Total Contrast Delivered: 100.0 ml; Total Saline Delivered: 40.0 ml RENAL FUNCTION: BUN 16 creatinine 0.93. RADIATION DOSE: CT Rad equipment meets quality standard of care and radiation dose reduction techniq ues were employed. CTDIvol: 20.3 - 20.8 mGy. DLP: 2313 mGy-cm.. LIMITATIONS: None. FINDINGS: LOWER CHEST: Small pleural effusions with streaky linear densities in the lung bases. LIVER: Normal size. No masses. No dilated ducts. SPLEEN: Normal size. No focal lesions. PANCREAS: Diffusely edematous appearance of the pancreas. Generally homogeneous enhancement with no clear-cut evidence of lack of enhancement. Diffuse edema and fluid in the peripancreatic tissues. N o focal fluid collections. Pancreatic duct not dilated. GALLBLADDER: No identified stones by CT criteria. No inflammatory changes to suggest cholecystitis. ADRENAL GLANDS: No significant masses or asymmetry. RIGHT KIDNEY AND URETER: No solid masses. No significant calcifications. No hydronephrosis or hyd roureter. LEFT KIDNEY AND URETER: Cortical cyst. No solid masses. No significant calcifications. No hydron ephrosis or hydroureter. AORTA AND VESSELS: No aneurysm. No dissection. Renal arteries, SMA, celiac without stenosis. RETROPERITONEUM: No retroperitoneal adenopathy, hemorrhage or masses. BOWEL AND PERITONEAL CAVITY: Colonic diverticulosis. No masses or inflammatory changes. No free flui d or peritoneal masses. APPENDIX: Normal. PELVIS: No mass. No free fluid. Normal bladder. ABDOMINAL WALL: No masses. No hernias. BONES: No significant or acute findings. OTHER: No other significant finding. IMPRESSION: 1. FINDINGS OF ACUTE PANCREATITIS, SIMILAR TO THE PREVIOUS STUDY. NO EVIDENCE OF CYST OR PSEUDOCYST OR ABSCESS. NO FOCAL AREAS OF NON ENHANCEMENT TO INDICATE NECROTIC TISSUE. 2. SMALL PLEURAL EFFUSIONS WITH BASILAR LUNG DENSITIES PROBABLY DUE TO ATELECTASIS. 3. COLONIC DIVERTICULOSIS. LEFT RENAL CYST. NO OTHER SIGNIFICANT OR ACUTE FINDING IN THE ABDOMEN OR PELVIS ON CT SCAN WITH IV CONTRAST. TECHNICAL DOCUMENTATION: JOB ID: [id number] Quality ID # [id number]: Final reports with documentation of one or more dose reduction techniques (e.g., Au tomated exposure control, adjustment of the mA and/or kV according to patient size, use of iterative reconstruction technique) 2010 [employer]- All Rights Reserved
[2017-12-24] MEDS: DEXTROSE 5%-NORMAL SALINE 1,000 ML IV PRN (01:33)
[2017-12-24] MEDS: INSULIN LISPRO 100 UNIT/ML 3 ML VIAL SUBCUT PRN ×3 (08:57→22:21)
[2017-12-24] MEDS ORDERED: OXYCODONE HCL IR 5 MG TABLET PO PRN (09:09)
--- NOTE | 2017-12-24 14:51 | PDOC PROGRESS REPORT ---
Subjective Progress Note for:: 12/24/17 Subjective:: The patient is a 62-year-old male with a past medical history of hyperlipidemia , hypertension, and diabetes mellitus type 2 on Victoza who was admitted on 12/20 for acute pancreatitis. The patient is seen on morning rounds. He is found resting in the bedside recliner comfortably on room air with his present. His primary complaint at this time is back pain related to the hospital bed/mattress. He denies abdominal pain, nausea vomiting, diarrhea. He does report return of his appetite and requests to have his diet advanced today. He is hopeful to be discharged home within the next day or 2. He has no other questions or concerns at this time. Reason For Visit: ACUTE PANCREATITIS Physical Exam Vital Signs: Temp Pulse Resp BP Pulse Ox 99.6 F 61 16 116/59 L 98 12/24/17 11:39 12/24/17 14:00 12/24/17 11:39 12/24/17 11:39 12/24/17 11:39 Intake & Output 12/23/17 12/24/17 12/25/17 06:59 06:59 06:59 Intake Total 2258 1560 Output Total 1150 1725 Balance 1108 -165 Weight 128.4 kg 129 kg General appearance: PRESENT: no acute distress, obese, well-developed, well- nourished Head exam: PRESENT: atraumatic, normocephalic Eye exam: PRESENT: conjunctiva pink, EOMI, PERRLA. ABSENT: scleral icterus Ear exam: PRESENT: normal external ear exam Mouth exam: PRESENT: moist, tongue midline Neck exam: ABSENT: carotid bruit, JVD, lymphadenopathy, thyromegaly Respiratory exam: PRESENT: clear to auscultation joey, symmetrical, unlabored. ABSENT: rales, rhonchi, wheezes Cardiovascular exam: PRESENT: RRR, +S1, +S2. ABSENT: diastolic murmur, rubs, systolic murmur Pulses: PRESENT: normal dorsalis pedis pul Vascular exam: PRESENT: normal capillary refill GI/Abdominal exam: PRESENT: normal bowel sounds, soft, tenderness. ABSENT: distended, guarding, mass, organolmegaly, rebound Rectal exam: PRESENT: deferred Extremities exam: PRESENT: full ROM. ABSENT: calf tenderness, clubbing, pedal edema Neurological exam: PRESENT: alert, awake, oriented to person, oriented to place , oriented to time, oriented to situation, CN II-XII grossly intact. ABSENT: motor sensory deficit Psychiatric exam: PRESENT: appropriate affect, normal mood. ABSENT: homicidal ideation, suicidal ideation Skin exam: PRESENT: dry, intact, warm. ABSENT: cyanosis, rash Results Laboratory Results: 12/23/17 05:06 12/23/17 05:06 Impressions: Acute Abdomen Series 12/20/17 05:10 IMPRESSION: 1. No acute pulmonary process. 2. Nonobstructive bowel gas pattern. Abdomen/Pelvis CT 12/23/17 00:00 IMPRESSION: 1. FINDINGS OF ACUTE PANCREATITIS, SIMILAR TO THE PREVIOUS STUDY. NO EVIDENCE OF CYST OR PSEUDOCYST OR ABSCESS. NO FOCAL AREAS OF NON ENHANCEMENT TO INDICATE NECROTIC TISSUE. 2. SMALL PLEURAL EFFUSIONS WITH BASILAR LUNG DENSITIES PROBABLY DUE TO ATELECTASIS. 3. COLONIC DIVERTICULOSIS. LEFT RENAL CYST. NO OTHER SIGNIFICANT OR ACUTE FINDING IN THE ABDOMEN OR PELVIS ON CT SCAN WITH IV CONTRAST. Assessment & Plan - Diagnosis (1) Acute pancreatitis Is this a current diagnosis for this admission?: Yes Plan: We will continue IV fluids. We will transition from IV to oral pain medications. The diet will be advanced to clear liquids today; if the patient tolerates this it may be advanced as tolerated. Anti-emetics as needed. (2) Fever Is this a current diagnosis for this admission?: Yes Plan: Trending downwards; the patient did have a temperature of 100.8 early this morning. Influenza is negative. Repeat abdominal CAT scan did not show evidence of developing pseudocyst or pancreatic necrosis. We will continue to monitor. (3) DM type 2 (diabetes mellitus, type 2) Is this a current diagnosis for this admission?: Yes Plan: Hemoglobin A1c of 6.3%. Accu-Cheks before meals and at bedtime with Humalog for sliding scale coverage. (4) Hyperlipidemia Is this a current diagnosis for this admission?: Yes Plan: Within normal limits. Continue the patient's home dose simvastatin. (5) Hypertension Is this a current diagnosis for this admission?: Yes Plan: Well-controlled. Continue patient's home dose benazepril. (6) DVT prophylaxis Is this a current diagnosis for this admission?: Yes Plan: SCDs; encourage ambulation. (7) Dehydration Is this a current diagnosis for this admission?: Yes Plan: Resolved. - Time Time Spent with patient: 25-34 minutes Medications reviewed and adjusted accordingly: Yes Anticipated discharge: Home Within: within 24 hours
[2017-12-24] MEDS: OXYCODONE HCL IR 5 MG TABLET PO PRN (18:12)
[2017-12-24] MEDS: SIMVASTATIN 40 MG TABLET PO SCH (21:48)
[2017-12-25 05:43] LABS: HEMATOCRIT 33.3 % (37.9-51.0); HEMOGLOBIN 11.1 g/dL (13.5-17.0); MEAN CORPUSCULAR HEMOGLOBIN 28.7 pg (27.0-33.4); MEAN CORPUSCULAR HGB CONC 33.3 g/dL (32.0-36.0); MEAN CORPUSCULAR VOLUME 86 fl (80-97); PLATELET COUNT 147 10^3/uL (150-450); RED BLOOD COUNT 3.86 10^6/uL (4.35-5.55); RED CELL DISTRIBUTION WIDTH 13.6 % (11.5-14.0); WHITE BLOOD COUNT 12.9 10^3/uL (4.0-10.5)
[2017-12-25 06:06] LABS: ANION GAP 6 (5-19); BLOOD UREA NITROGEN 12 mg/dL (7-20); CALCIUM 8.5 mg/dL (8.4-10.2); CARBON DIOXIDE 29 mmol/L (22-30); CHLORIDE 103 mmol/L (98-107); GLUCOSE 132 mg/dL (75-110); POTASSIUM 3.4 mmol/L (3.6-5.0); SODIUM 137.6 mmol/L (137-145)
[2017-12-25] MEDS ORDERED: NORMAL SALINE 1000 ML 1,000 ML IV PRN (08:24)
[2017-12-25] MEDS: BENAZEPRIL HCL 20 MG TABLET PO SCH (09:20)
--- NOTE | 2017-12-25 12:38 | PDOC PROGRESS REPORT ---
Subjective Progress Note for:: 12/25/17 Subjective:: The patient is a 62-year-old male with a past medical history of hyperlipidemia , hypertension, and diabetes mellitus type 2 on Victoza who was admitted on 12/20 for acute pancreatitis. The patient is seen on morning rounds. He is found resting in bed comfortably on room air. States that his pain is much improved and only required pain medications once overnight. He denies nausea, vomiting, and diarrhea. He does report that he has tolerated water well but had significant abdominal pain after eating Jell-O and broth. Reason For Visit: ACUTE PANCREATITIS Physical Exam Vital Signs: Temp Pulse Resp BP Pulse Ox 99.1 F 57 L 21 H 127/68 H 99 12/25/17 04:39 12/25/17 07:00 12/25/17 04:39 12/25/17 04:39 12/25/17 04:39 Intake & Output 12/24/17 12/25/17 12/26/17 06:59 06:59 06:59 Intake Total 1560 1055 Output Total 1725 270 Balance -165 785 Weight 129 kg 126.3 kg General appearance: PRESENT: no acute distress, obese, well-developed, well- nourished Head exam: PRESENT: atraumatic, normocephalic Eye exam: PRESENT: conjunctiva pink, EOMI, PERRLA. ABSENT: scleral icterus Ear exam: PRESENT: normal external ear exam Mouth exam: PRESENT: moist, tongue midline Neck exam: ABSENT: carotid bruit, JVD, lymphadenopathy, thyromegaly Respiratory exam: PRESENT: clear to auscultation joey, symmetrical, unlabored. ABSENT: rales, rhonchi, wheezes Cardiovascular exam: PRESENT: RRR, +S1, +S2. ABSENT: diastolic murmur, rubs, systolic murmur Pulses: PRESENT: normal dorsalis pedis pul Vascular exam: PRESENT: normal capillary refill GI/Abdominal exam: PRESENT: normal bowel sounds, soft. ABSENT: distended, guarding, mass, organolmegaly, rebound, tenderness Rectal exam: PRESENT: deferred Extremities exam: PRESENT: full ROM. ABSENT: calf tenderness, clubbing, pedal edema Neurological exam: PRESENT: alert, awake, oriented to person, oriented to place , oriented to time, oriented to situation, CN II-XII grossly intact. ABSENT: motor sensory deficit Psychiatric exam: PRESENT: appropriate affect, normal mood. ABSENT: homicidal ideation, suicidal ideation Skin exam: PRESENT: dry, intact, warm. ABSENT: cyanosis, rash Results Laboratory Results: 12/25/17 05:20 12/25/17 05:20 12/25/17 12/25/17 05:20 05:20 WBC 12.9 H RBC 3.86 L Hgb 11.1 L Hct 33.3 L MCV 86 MCH 28.7 MCHC 33.3 RDW 13.6 Plt Count 147 L Sodium 137.6 Potassium 3.4 L Chloride 103 Carbon Dioxide 29 Anion Gap 6 BUN 12 Creatinine 0.94 Est GFR ( Amer) > 60 Est GFR (Non-Af Amer) > 60 Glucose 132 H Calcium 8.5 Impressions: Acute Abdomen Series 12/20/17 05:10 IMPRESSION: 1. No acute pulmonary process. 2. Nonobstructive bowel gas pattern. Abdomen/Pelvis CT 12/23/17 00:00 IMPRESSION: 1. FINDINGS OF ACUTE PANCREATITIS, SIMILAR TO THE PREVIOUS STUDY. NO EVIDENCE OF CYST OR PSEUDOCYST OR ABSCESS. NO FOCAL AREAS OF NON ENHANCEMENT TO INDICATE NECROTIC TISSUE. 2. SMALL PLEURAL EFFUSIONS WITH BASILAR LUNG DENSITIES PROBABLY DUE TO ATELECTASIS. 3. COLONIC DIVERTICULOSIS. LEFT RENAL CYST. NO OTHER SIGNIFICANT OR ACUTE FINDING IN THE ABDOMEN OR PELVIS ON CT SCAN WITH IV CONTRAST. Assessment & Plan - Diagnosis (1) Acute pancreatitis Is this a current diagnosis for this admission?: Yes Plan: The patient's IV accidentally was removed last night. He does not agree to have the IV restarted for fluids today. Nursing notes indicate poor p.o. intake yesterday, however, the patient reports that he did drink water well (apparently family has been providing bottled water ). Encourage the patient to increase p.o. intake today. He did well with transition to oral pain medications. Continue clear liquid diet and advance as tolerated. Anti-emetics as needed. (2) Fever Is this a current diagnosis for this admission?: Yes Plan: Trending downwards; the patient did have a temperature of 100.5 night last night. Influenza is negative. Repeat abdominal CT scan did not show evidence of developing pseudocyst or pancreatic necrosis. Blood cultures: No growth at 24 hours We will continue to monitor. (3) DM type 2 (diabetes mellitus, type 2) Is this a current diagnosis for this admission?: Yes Plan: Hemoglobin A1c of 6.3%. Accu-Cheks before meals and at bedtime with Humalog for sliding scale coverage. (4) Hyperlipidemia Is this a current diagnosis for this admission?: Yes Plan: Within normal limits. Continue the patient's home dose simvastatin. (5) Hypertension Is this a current diagnosis for this admission?: Yes Plan: Well-controlled. Continue patient's home dose benazepril. (6) DVT prophylaxis Is this a current diagnosis for this admission?: Yes Plan: SCDs; encourage ambulation. (7) Dehydration Is this a current diagnosis for this admission?: Yes Plan: Resolved. - Time Time Spent with patient: 25-34 minutes Medications reviewed and adjusted accordingly: Yes Anticipated discharge: Home Within: Other - Once afebrile and tolerating p.o.
[2017-12-25] MEDS: OXYCODONE HCL IR 5 MG TABLET PO PRN (19:43)
[2017-12-25] MEDS: INSULIN LISPRO 100 UNIT/ML 3 ML VIAL SUBCUT PRN (22:53)
[2017-12-25] MEDS: SIMVASTATIN 40 MG TABLET PO SCH (22:53)
[2017-12-26 06:35] LABS: HEMATOCRIT 33.9 % (37.9-51.0); HEMOGLOBIN 11.4 g/dL (13.5-17.0); MEAN CORPUSCULAR HEMOGLOBIN 28.9 pg (27.0-33.4); MEAN CORPUSCULAR HGB CONC 33.5 g/dL (32.0-36.0); MEAN CORPUSCULAR VOLUME 86 fl (80-97); PLATELET COUNT 180 10^3/uL (150-450); RED BLOOD COUNT 3.94 10^6/uL (4.35-5.55); RED CELL DISTRIBUTION WIDTH 13.8 % (11.5-14.0); WHITE BLOOD COUNT 12.2 10^3/uL (4.0-10.5)
[2017-12-26 06:52] LABS: ANION GAP 8 (5-19); BLOOD UREA NITROGEN 9 mg/dL (7-20); CALCIUM 8.6 mg/dL (8.4-10.2); CARBON DIOXIDE 27 mmol/L (22-30); CHLORIDE 102 mmol/L (98-107); GLUCOSE 123 mg/dL (75-110); LIPASE 107.8 U/L (23-300); POTASSIUM 3.3 mmol/L (3.6-5.0)
[2017-12-26 09:22] LABS: ALANINE AMINOTRANSFERASE 59 U/L (21-72); ALBUMIN 2.7 g/dL (3.5-5.0); ALKALINE PHOSPHATASE 90 U/L (38-126); ASPARTATE AMINO TRANSFERASE 42 U/L (17-59); BILIRUBIN,DIRECT 0.3 mg/dL (0.0-0.4); BILIRUBIN,TOTAL 0.9 mg/dL (0.2-1.3); TOTAL PROTEIN 5.8 g/dL (6.3-8.2)
--- NOTE | 2017-12-26 09:30 | RADIOLOGY REPORT (SQ) ---
EXAM DESCRIPTION: CHEST SINGLE VIEW COMPLETED DATE/TIME: 12/26/2017 9:14 am REASON FOR STUDY: fever, elevated WBC COMPARISON: 12/20/2017 EXAM PARAMETERS: NUMBER OF VIEWS: One view. TECHNIQUE: Single frontal radiographic view of the chest acquired. RADIATION DOSE: NA LIMITATIONS: None. FINDINGS: LUNGS AND PLEURA: Bibasilar atelectasis versus pneumonia left greater than right. No pleural effusion. No pneumothorax. MEDIASTINUM AND HILAR STRUCTURES: No masses. Contour normal. HEART AND VASCULAR STRUCTURES: Heart normal in size. Normal vasculature. BONES: No acute findings. HARDWARE: None in the chest. OTHER: No other significant finding. IMPRESSION: Bibasilar airspace disease left greater than right, atelectasis versus pneumonia. TECHNICAL DOCUMENTATION: JOB ID: [id number] [employer]- All Rights Reserved
[2017-12-26 10:40] LABS: APPEARANCE,URINE CLEAR; BILIRUBIN,URINE NEGATIVE (NEGATIVE); COLOR,URINE YELLOW; GLUCOSE, URINE NEGATIVE (NEGATIVE); KETONES,URINE NEGATIVE (NEGATIVE); LEUKOCYTE ESTERASE,URINE NEGATIVE (NEGATIVE); NITRITE,URINE NEGATIVE (NEGATIVE); PROTEIN,URINE NEGATIVE (NEGATIVE); URINE SPECIFIC GRAVITY 1.013
[2017-12-26] MEDS: ERTAPENEM SODIUM 1 GM in NORMAL SALINE 50 ML IV SCH (11:37)
[2017-12-26] MEDS: BENAZEPRIL HCL 20 MG TABLET PO SCH (11:37)
[2017-12-26] MEDS: NORMAL SALINE 1000 ML 1,000 ML IV PRN ×2 (11:38→22:28)
[2017-12-26] MEDS: INSULIN LISPRO 100 UNIT/ML 3 ML VIAL SUBCUT PRN (12:37)
--- NOTE | 2017-12-26 16:12 | PDOC PROGRESS REPORT ---
Subjective Progress Note for:: 12/26/17 Subjective:: The patient is a 62-year-old male with a past medical history of hyperlipidemia , hypertension, and diabetes mellitus type 2 on Victoza who was admitted on 12/20 for acute pancreatitis. The patient is seen on morning rounds. He is found resting in bed on room air. He states that he is feeling much worse today. He reports his abdominal pain has increased slightly and that he has had multiple episodes of diarrhea, including 2 episodes of stool incontinence overnight. States that he is tolerating clear liquids but is having continued nausea. He denies emesis. Reason For Visit: ACUTE PANCREATITIS Physical Exam Vital Signs: Temp Pulse Resp BP Pulse Ox 99.1 F 63 20 121/62 98 12/26/17 12:08 12/26/17 12:08 12/26/17 12:08 12/26/17 12:08 12/26/17 12:08 Intake & Output 12/25/17 12/26/17 12/27/17 06:59 06:59 06:59 Intake Total 1055 2328 Output Total 270 1250 Balance 785 1078 Weight 126.3 kg 127.1 kg General appearance: PRESENT: no acute distress, obese, well-developed, well- nourished Head exam: PRESENT: atraumatic, normocephalic Eye exam: PRESENT: conjunctiva pink, EOMI, PERRLA. ABSENT: scleral icterus Ear exam: PRESENT: normal external ear exam Mouth exam: PRESENT: moist, tongue midline Neck exam: ABSENT: carotid bruit, JVD, lymphadenopathy, thyromegaly Respiratory exam: PRESENT: clear to auscultation joey, decreased breath sounds - Bibasilar, symmetrical, unlabored. ABSENT: rales, rhonchi, wheezes Cardiovascular exam: PRESENT: RRR, +S1, +S2. ABSENT: diastolic murmur, rubs, systolic murmur Pulses: PRESENT: normal dorsalis pedis pul Vascular exam: PRESENT: normal capillary refill GI/Abdominal exam: PRESENT: normal bowel sounds, soft, tenderness. ABSENT: distended, guarding, mass, organolmegaly, rebound Rectal exam: PRESENT: deferred Extremities exam: PRESENT: full ROM. ABSENT: calf tenderness, clubbing, pedal edema Neurological exam: PRESENT: alert, awake, oriented to person, oriented to place , oriented to time, oriented to situation, CN II-XII grossly intact. ABSENT: motor sensory deficit Psychiatric exam: PRESENT: appropriate affect, normal mood. ABSENT: homicidal ideation, suicidal ideation Skin exam: PRESENT: dry, intact, warm. ABSENT: cyanosis, rash Results Laboratory Results: 12/26/17 05:48 12/26/17 05:48 12/26/17 12/26/17 12/26/17 05:48 05:48 05:48 WBC 12.2 H RBC 3.94 L Hgb 11.4 L Hct 33.9 L MCV 86 MCH 28.9 MCHC 33.5 RDW 13.8 Plt Count 180 Sodium 137.0 Potassium 3.3 L Chloride 102 Carbon Dioxide 27 Anion Gap 8 BUN 9 Creatinine 0.92 Est GFR ( Amer) > 60 Est GFR (Non-Af Amer) > 60 Glucose 123 H Calcium 8.6 Total Bilirubin 0.9 AST 42 ALT 59 Alkaline Phosphatase 90 Total Protein 5.8 L Albumin 2.7 L Lipase 107.8 Urine Color Urine Appearance Urine pH Ur Specific [place] Urine Protein Urine Glucose (UA) Urine Ketones Urine Blood Urine Nitrite Ur Leukocyte Esterase Urine WBC (Auto) Urine RBC (Auto) 12/26/17 10:05 WBC RBC Hgb Hct MCV MCH MCHC RDW Plt Count Sodium Potassium Chloride Carbon Dioxide Anion Gap BUN Creatinine Est GFR ( Amer) Est GFR (Non-Af Amer) Glucose Calcium Total Bilirubin AST ALT Alkaline Phosphatase Total Protein Albumin Lipase Urine Color YELLOW Urine Appearance CLEAR Urine pH 7.0 Ur Specific [place] 1.013 Urine Protein NEGATIVE Urine Glucose (UA) NEGATIVE Urine Ketones NEGATIVE Urine Blood SMALL H Urine Nitrite NEGATIVE Ur Leukocyte Esterase NEGATIVE Urine WBC (Auto) 2 Urine RBC (Auto) 5 Impressions: Acute Abdomen Series 12/20/17 05:10 IMPRESSION: 1. No acute pulmonary process. 2. Nonobstructive bowel gas pattern. Abdomen/Pelvis CT 12/23/17 00:00 IMPRESSION: 1. FINDINGS OF ACUTE PANCREATITIS, SIMILAR TO THE PREVIOUS STUDY. NO EVIDENCE OF CYST OR PSEUDOCYST OR ABSCESS. NO FOCAL AREAS OF NON ENHANCEMENT TO INDICATE NECROTIC TISSUE. 2. SMALL PLEURAL EFFUSIONS WITH BASILAR LUNG DENSITIES PROBABLY DUE TO ATELECTASIS. 3. COLONIC DIVERTICULOSIS. LEFT RENAL CYST. NO OTHER SIGNIFICANT OR ACUTE FINDING IN THE ABDOMEN OR PELVIS ON CT SCAN WITH IV CONTRAST. Chest X-Ray 12/26/17 00:00 IMPRESSION: Bibasilar airspace disease left greater than right, atelectasis versus pneumonia. Assessment & Plan - Diagnosis (1) Acute pancreatitis Is this a current diagnosis for this admission?: Yes Plan: The patient's lipase is normal today at 107.8. However, the patient reports increased abdominal pain, persistent nausea, low-grade fever, and multiple episodes of diarrhea that developed overnight. ABD/Pelvis CT on 12/23/17 was negative for pseudocyst or development of pancreatic necrosis. WBC count remains elevated. Blood cultures are negative at 48 hours. The patient is agreeable to restarting IV fluids today. Given his persistent fever, abdominal pain, and WBCs, will place the patient on ertapenem. Abdominal CTs have been negative for gallstones, will obtain a right upper quadrant ultrasound. Antiemetics as needed for nausea. P.o. oxycodone as needed for pain. We will advance to a low-fat diet. (2) Fever Is this a current diagnosis for this admission?: Yes Plan: The fever may be related to pancreatitis, however, as he continues to have low- grade temperatures will evaluate for alternate causes including pneumonia or urinary tract infection. Influenza is negative. Repeat abdominal CT scan did not show evidence of developing pseudocyst or pancreatic necrosis. Blood cultures: No growth at 48 hours Urine cultures pending. Stool cultures pending. Chest x-ray demonstrates bibasilar airspace disease with the left greater than right, atelectasis versus pneumonia. Urinalysis is negative for UTI. C. difficile negative The patient was empirically placed on ertapenem. Have resumed IV fluids. Tylenol as needed for fever. We will continue to monitor. (3) DM type 2 (diabetes mellitus, type 2) Is this a current diagnosis for this admission?: Yes Plan: Hemoglobin A1c of 6.3%. Accu-Cheks before meals and at bedtime with Humalog for sliding scale coverage. (4) Hyperlipidemia Is this a current diagnosis for this admission?: Yes Plan: Within normal limits. Continue the patient's home dose simvastatin. (5) Hypertension Is this a current diagnosis for this admission?: Yes Plan: Well-controlled. Continue patient's home dose benazepril. (6) DVT prophylaxis Is this a current diagnosis for this admission?: Yes Plan: SCDs; encourage ambulation. (7) Dehydration Is this a current diagnosis for this admission?: Yes Plan: Resolved. - Time Time Spent with patient: 25-34 minutes Medications reviewed and adjusted accordingly: Yes - Inpatient Certification Based on my medical assessment, after consideration of the patient's comorbidities, presenting symptoms, or acuity I expect that the services needed warrant INPATIENT care.: Yes I certify that my determination is in accordance with my understanding of Medicare's requirements for reasonable and necessary INPATIENT services [42 CFR 412.3e].: Yes Medical Necessity: Need For IV Fluids, Need for IV Antibiotics
[2017-12-26] MEDS: SIMVASTATIN 40 MG TABLET PO SCH (22:28)
[2017-12-27] MEDS: INSULIN LISPRO 100 UNIT/ML 3 ML VIAL SUBCUT PRN (00:08)
[2017-12-27 06:30] LABS: ABSOLUTE EOSINOPHILS # (AUTO) 0.1 10^3/uL (0.0-0.6); ABSOLUTE LYMPHOCYTES (AUTO) 1.1 10^3/uL (0.5-4.7); ABSOLUTE NEUT (AUTO) 8.4 10^3/uL (1.7-8.2); BASOPHILS % (AUTO) 0.3 % (0-2); EOSINOPHILS % (AUTO) 1.3 % (0-6); HEMATOCRIT 34.2 % (37.9-51.0); HEMOGLOBIN 11.4 g/dL (13.5-17.0); LYMPHOCYTES % (AUTO) 10.1 % (13-45); MEAN CORPUSCULAR HEMOGLOBIN 28.7 pg (27.0-33.4); MEAN CORPUSCULAR HGB CONC 33.2 g/dL (32.0-36.0); MEAN CORPUSCULAR VOLUME 86 fl (80-97); MONOCYTES % (AUTO) 9.8 % (3-13); PLATELET COUNT 217 10^3/uL (150-450); RED BLOOD COUNT 3.96 10^6/uL (4.35-5.55); RED CELL DISTRIBUTION WIDTH 13.4 % (11.5-14.0); SEGMENTED NEUTROPHILS % (AUTO) 78.5 % (42-78); TOTAL CELLS COUNTED % (AUTO) 100 %; WHITE BLOOD COUNT 10.7 10^3/uL (4.0-10.5)
[2017-12-27 06:49] LABS: ANION GAP 8 (5-19); BLOOD UREA NITROGEN 7 mg/dL (7-20); CALCIUM 8.3 mg/dL (8.4-10.2); CARBON DIOXIDE 27 mmol/L (22-30); CHLORIDE 103 mmol/L (98-107); GLUCOSE 155 mg/dL (75-110); POTASSIUM 3.5 mmol/L (3.6-5.0)
--- NOTE | 2017-12-27 07:37 | RADIOLOGY REPORT (SQ) ---
EXAM DESCRIPTION: U/S ABDOMEN LIMITED W/O DOP COMPLETED DATE/TIME: 12/27/2017 7:17 am REASON FOR STUDY: Acute pancreatitis. ? gallstones COMPARISON: CT abdomen and pelvis 12/20/2017, 12/23/2017. TECHNIQUE: Grayscale images acquired of the right upper quadrant and recorded on PACS. Additional se lected color Doppler and spectral images recorded. LIMITATIONS: Acoustical interference from fat or from air in the bowel. FINDINGS: PANCREAS: Mostly obscured by overlying bowel gas. The visualized pancreas in the midline appears edematous. There is possible dilation of the main pancreatic duct to 6 mm. LIVER: Measures 16.9 cm. There is a 1.5 x 1.6 x 1.3 cm hyperechoic area at the left hepatic lobe wit h no significant vascular flow on color Doppler images. LIVER VASCULATURE: Normal directional flow of the main portal vein. GALLBLADDER: Sludge noted. No shadowing stones. Normal wall thickness. No pericholecystic fluid. ULTRASOUND-DETECTED MARTINEZ'S SIGN: Negative. INTRAHEPATIC DUCTS AND COMMON DUCT: CBD and intrahepatic ducts normal caliber. INFERIOR VENA CAVA: Obscured by overlying bowel gas. AORTA: No aneurysm in the visualized proximal and mid segments, the distal abdominal aorta is obscure d by overlying bowel gas. RIGHT KIDNEY: Measures 12 cm in length. Normal echogenicity.No hydronephrosis. No calcifications. PERITONEAL CAVITY AND RIGHT PLEURAL SPACE: Peripancreatic fluid noted. IMPRESSION: 1. Partially visualized pancreas appears edematous with peripancreatic fluid, consisten t with clinical history of acute pancreatitis. Possible dilation of the main pancreatic duct. Pleas e note that CT or MRI are more sensitive in evaluation for peripancreatic edema or fluid collections. 2. Gallbladder sludge. No biliary ductal dilation. 3. 1.6 cm indeterminate hyperechoic lesion at the left hepatic lobe. This can be better evaluated wi dedicated contrast enhanced MRI. TECHNICAL DOCUMENTATION: JOB ID: [id number] [employer]- All Rights Reserved
[2017-12-27] MEDS: BENAZEPRIL HCL 20 MG TABLET PO SCH (10:25)
[2017-12-27] MEDS: ERTAPENEM SODIUM 1 GM in NORMAL SALINE 50 ML IV SCH (10:26)
[2017-12-27] MEDS ORDERED: INFLUENZA ADLT QUAD (36MOS+) 2017-18 VAC 0.5 ML SYR IM PRN (11:59)
[2017-12-27 12:48] VITALS: BP 116/77
--- NOTE | 2017-12-27 12:54 | PDOC DISCHARGE SUMMARY ---
General - Admit/Disc Date/PCP Admission Date/Primary Care Provider: 12/20/17 09:18 Discharge Date: 12/27/17 - Discharge Diagnosis (1) Acute pancreatitis Is this a current diagnosis for this admission?: Yes (2) Fever Is this a current diagnosis for this admission?: Yes (3) DM type 2 (diabetes mellitus, type 2) Is this a current diagnosis for this admission?: Yes (4) Hyperlipidemia Is this a current diagnosis for this admission?: Yes (5) Hypertension Is this a current diagnosis for this admission?: Yes (6) DVT prophylaxis Is this a current diagnosis for this admission?: Yes (7) Dehydration Is this a current diagnosis for this admission?: Yes - Additional Information Resuscitation Status: Full Code Discharge Diet: As Tolerated Discharge Activity: Activity As Tolerated, Slowly Increase Activity Prescriptions: Levofloxacin [Levaquin 750 mg Tablet] 750 mg PO DAILY #10 tab Oxycodone HCl [Oxy-Ir 5 mg Tablet] 5 mg PO Q4HP PRN #10 tablet PRN Reason: Home Medications: Benazepril HCl [Lotensin 20 mg Tablet] 20 mg PO DAILY 12/20/17 Metformin HCl [Metformin HCl ER] 1,500 mg PO DAILY 12/20/17 Simvastatin [Zocor 40 mg Tablet] 40 mg PO DAILY 12/20/17 Testosterone Cypionate [Depo-Testosterone] 1.5 ml IM [id number] 12/20/17 Oxycodone HCl [Oxy-Ir 5 mg Tablet] 5 mg PO Q4HP PRN #10 tablet 12/26/17 Levofloxacin [Levaquin 750 mg Tablet] 750 mg PO DAILY #10 tab 12/27/17 History of Present Illness History of Present Illness: Per H&P by Dr. Dior: TRICIA WESLEY is a 62 year old male with complaint of abdominal pain. Patient states that last night around 10:00 he developed severe abdominal pain patient states that prior to that he had been eating [place] food. Patient states that he has not had chills fever during this episode. Patient denies chest pain or shortness of breath. Patient does admit to nausea and vomiting. Patient reports that he is vomited approximately 6 times. Hospital Course Hospital Course: The patient was admitted with acute pancreatitis with a lipase of 3850 trended down to 107 over the course of his admission. He was evaluated with a CT of the abdomen and pelvis at time of admission; demonstrating an edematous appearance of the pancreas with inflammatory changes and fluid in the oscar- pancreatic tissues, colonic diverticulosis without evidence of acute diverticulitis, and a cortical cyst of the left kidney. He received supportive therapies with IV fluids, anti-antiemetics, and pain control. A lipid panel was evaluated and found to be acceptable with an HDL of 48, LDL of 60, triglycerides of 39, with total cholesterol being 116. His A1c was found to be 6.3%. The patient did have a persistently elevated WBC count as high as 14.2 which had trended down to 10.7 at time of discharge. Additionally, he was noted to have a persistently elevated temperature. The was underwent repeat CT imaging which did not demonstrate evidence of cyst, pseudocyst, abscesses, or evidence of necrotic tissue. The patient appeared to be clinically improving, and then developed worsening abdominal pain, myalgia, and diarrhea. He was placed on ertapenem and further evaluated with a Chest x-ray which showed atelectasis versus pneumonia and a right upper quadrant ultrasound which revealed gallbladder sludge but no biliary duct dilatation. He rapidly improved and was transitioned to a low-fat diet which he tolerated without abdominal pain, nausea, vomiting, or further episodes of diarrhea. At time of discharge, the patient is stable, afebrile, tolerating a low-fat diet , and pain-free. He is provided a 10 day prescription for Levaquin as well as a small prescription of oxycodone as needed for pain. He is instructed to follow-up with his primary care provider within 1 week and gastroenterology within 4-6 weeks. Physical Exam Vital Signs: Temp Pulse Resp BP Pulse Ox 98.6 F 63 18 135/67 H 100 12/27/17 11:45 12/27/17 11:45 12/27/17 11:45 12/27/17 11:45 12/27/17 11:45 Intake & Output 12/26/17 12/27/17 12/28/17 06:59 06:59 06:59 Intake Total 2328 2457 Output Total 1250 2600 Balance 1078 -143 Weight 127.1 kg 123.6 kg General appearance: PRESENT: no acute distress, obese, well-developed, well- nourished Head exam: PRESENT: atraumatic, normocephalic Eye exam: PRESENT: conjunctiva pink, EOMI, PERRLA. ABSENT: scleral icterus Ear exam: PRESENT: normal external ear exam Mouth exam: PRESENT: moist, tongue midline Neck exam: ABSENT: carotid bruit, JVD, lymphadenopathy, thyromegaly Respiratory exam: PRESENT: clear to auscultation joey, symmetrical, unlabored. ABSENT: rales, rhonchi, wheezes Cardiovascular exam: PRESENT: RRR, +S1, +S2. ABSENT: diastolic murmur, rubs, systolic murmur Pulses: PRESENT: normal dorsalis pedis pul Vascular exam: PRESENT: normal capillary refill GI/Abdominal exam: PRESENT: normal bowel sounds, soft. ABSENT: distended, guarding, mass, organolmegaly, rebound, tenderness Rectal exam: PRESENT: deferred Extremities exam: PRESENT: full ROM. ABSENT: calf tenderness, clubbing, pedal edema Neurological exam: PRESENT: alert, awake, oriented to person, oriented to place , oriented to time, oriented to situation, CN II-XII grossly intact. ABSENT: motor sensory deficit Psychiatric exam: PRESENT: appropriate affect, normal mood. ABSENT: homicidal ideation, suicidal ideation Skin exam: PRESENT: dry, intact, warm. ABSENT: cyanosis, rash Results Laboratory Results: 12/27/17 06:02 12/27/17 06:02 12/27/17 12/27/17 06:02 06:02 WBC 10.7 H RBC 3.96 L Hgb 11.4 L Hct 34.2 L MCV 86 MCH 28.7 MCHC 33.2 RDW 13.4 Plt Count 217 Seg Neutrophils % 78.5 H Lymphocytes % 10.1 L Monocytes % 9.8 Eosinophils % 1.3 Basophils % 0.3 Absolute Neutrophils 8.4 H Absolute Lymphocytes 1.1 Absolute Monocytes 1.0 Absolute Eosinophils 0.1 Absolute Basophils 0.0 Sodium 138.0 Potassium 3.5 L Chloride 103 Carbon Dioxide 27 Anion Gap 8 BUN 7 Creatinine 0.89 Est GFR ( Amer) > 60 Est GFR (Non-Af Amer) > 60 Glucose 155 H Calcium 8.3 L Impressions: Acute Abdomen Series 12/20/17 05:10 IMPRESSION: 1. No acute pulmonary process. 2. Nonobstructive bowel gas pattern. Abdomen/Pelvis CT 12/23/17 00:00 IMPRESSION: 1. FINDINGS OF ACUTE PANCREATITIS, SIMILAR TO THE PREVIOUS STUDY. NO EVIDENCE OF CYST OR PSEUDOCYST OR ABSCESS. NO FOCAL AREAS OF NON ENHANCEMENT TO INDICATE NECROTIC TISSUE. 2. SMALL PLEURAL EFFUSIONS WITH BASILAR LUNG DENSITIES PROBABLY DUE TO ATELECTASIS. 3. COLONIC DIVERTICULOSIS. LEFT RENAL CYST. NO OTHER SIGNIFICANT OR ACUTE FINDING IN THE ABDOMEN OR PELVIS ON CT SCAN WITH IV CONTRAST. Chest X-Ray 12/26/17 00:00 IMPRESSION: Bibasilar airspace disease left greater than right, atelectasis versus pneumonia. Abdomen Ultrasound 12/27/17 00:00 IMPRESSION: 1. Partially visualized pancreas appears edematous with peripancreatic fluid, consistent with clinical history of acute pancreatitis. Possible dilation of the main pancreatic duct. Please note that CT or MRI are more sensitive in evaluation for peripancreatic edema or fluid collections. 2. Gallbladder sludge. No biliary ductal dilation. 3. 1.6 cm indeterminate hyperechoic lesion at the left hepatic lobe. This can be better evaluated with dedicated contrast enhanced MRI. Qualifiers PATEINT BEING DISCHARGED WITH ANY OF THE FOLLOWING DIAGNOSIS?: No
== END 2017-12-27 13:50 | disposition home or self-care (01) | DRG 439 ==
LOC: ER 03:28 → UNDOADMIN 09:18 → EH 09:18 → 4N 21:39
PROVIDERS: ADMIT Emergency Medicine; ATTEND Emergency Medicine
PROC: 3E0234Z Introduction of Serum, Toxoid and Vaccine into Muscle, Percutaneous Approach (ICD-10-PCS; principal; 2017-12-27)
DX: K85.90 Acute pancreatitis without necrosis or infection, unspecified (principal); Q61.01 Congenital single renal cyst; Z23 Encounter for immunization; E11.9 Type 2 diabetes mellitus without complications; I10 Essential (primary) hypertension; E86.0 Dehydration; Z79.899 Other long term (current) drug therapy; K57.30 Diverticulosis of large intestine without perforation or abscess without bleeding; E78.00 Pure hypercholesterolemia, unspecified; Z83.3 Family history of diabetes mellitus; Z82.49 Family history of ischemic heart disease and other diseases of the circulatory system
CPT/HCPCS: 36415; 71045; 74022; 74177; 76705; 80048; 80053; 80061; 80076; 81001; 82962; 83036; 83690; 83735; 84439; 84443; 85025; 85027; 87040; 87045; 87086; 87205; 87493; 87804; 90686; 96361; 96374; 96375; 96376; 99285; J1170; J1335; J1815; J1940; J2270; J2405; J7030; S0164